=== PATIENT | male | born 1945 | race Caucasian/White ===

== ENCOUNTER → 2020-06-13 | Outpatient (CLI) | payer MEDICARE, BC | LOC: COL.LAB 10:48 | DX: Z96.641 Presence of right artificial hip joint (principal) ==

== ENCOUNTER 2020-06-18 05:10 | Day surgery (SDC) | payer MEDICARE, BC ==
[2020-06-18] VITALS (12 sets, daily range): BP systolic 87–125; BP diastolic 49–81; PULSE 73–85; TEMP 16
[~2020-06-18] VITALS: Ht 167.7 cm; Wt 93.9 kg
[~2020-06-18 05:10] MED LIST: ASPIRIN E.C. 8181 MG PO; EC-NAPROSYN375 MG PO; LOZOL 2.5M2.5 MG/TAB PO; ONE-A-DAY ESSE1 EACH PO; PRAVACHOL 20MG20 MG PO; PRINIVIL20 MG PO
--- NOTE | 2020-06-18 12:16 | NUR ---
PT TO ROOM 327 PER BED WITH REPORT FROM CESIA RAHMAN [email or web address]. PT IS A/O X3 LUNGS CTA, BOWEL SOUNDS ACTIVE, DRESSING TO RIGHT HIP CDI WITH OCCLUSIVE FOAM TAPE OVER INCISION AND DRESSINGS. POSITIVE PEDAL PULSES. SCDS AND TEDS BILATERALLY. IV TO PUMP, PT DENIES PAIN, N/V. AT BEDSIDE.
--- NOTE | 2020-06-18 14:26 | NUR ---
Plan: To return home with Camelia as care support. Assessment: SW met with patient in room about care support. Patient reports that he resides locally and will help him recovery. Patient indicated that he has a walker and cane at home that he will use for mobility. Patient denies having any other DME use. Patient reports that his PCP is Dr. Verdin with no upcoming appointments. Patient reports that he prefers [facility] for RX. Patient reports that his is his DPOA and declines adding any other EMR contacts. Patient indicated that will help transport. [facility]. Action: Educated patient on Home health services and community supports. Declined additional rehab. Client denies any care concerns at this time. Will follow or care support if they change.
--- NOTE | 2020-06-18 17:15 | NUR ---
PT HAS VOIDED 100 MLS THIS PM.
--- NOTE | 2020-06-18 21:31 | NUR ---
PT WAS ABLE TO STAND AT BEDSIDE AND MOVE UP TO HEAD OF BED WITH STEADY GAIT. DID HAVE SMALL AMOUNT OF EMESIS WHEN SITTING UP TO SIDE OF BED. RATES PAIN 8/10 AND WAS MEDICATED WITH OXYCODONE 10MG AND MORPHINE 2MG IV AT THIS TIME, WELL DOSE OF ZOFRAN. IVF CONTINUE TO LEFT HAND. IS ALERT AND ORIENTED X4. BULKY DRSG D/I.
--- NOTE | 2020-06-18 21:34 | NUR ---
BLADDER SCANNED FOR 375ML AT THIS TIME. HAS VOIDED 200CC AND HAS BEEN VOIDING IN 100CC INCREMENTS.
--- NOTE | 2020-06-19 01:31 | NUR ---
RATES PAIN 8/10. MEDICATED WITH OXYCODONE 10MG AND MORPHINE 2MG IV AT THIS TIME.
[2020-06-19 04:00] VITALS: BP 116/66; PULSE 87; TEMP 98.5
--- NOTE | 2020-06-19 06:19 | NUR ---
Medicated with Oxycodone 10mg po with AM meds. IVF capped, taking po fluids well.
[2020-06-19 07:05] LABS: HEMATOCRIT 39.3 % (42.0-52.0); HEMOGLOBIN 13.5 g/dl (13.5-18.0)
[2020-06-19 07:25] VITALS: BP 130/70; PULSE 88; TEMP 99.8
--- NOTE | 2020-06-19 08:10 | NUR ---
PATIENT RESTING IN BED AT BEDSIDE SHIFT REPORT. PATIENT ASSISTED TO REPOSITION UP IN BED. PATIENT REPORTS A PAIN LEVEL OF 1/10 AFTER PRN PAIN MEDICINE LAST SHIFT.
--- NOTE | 2020-06-19 11:55 | NUR ---
PATIENT'S DRESSING CHANGED TO MEDIUM AQUACELL THIS AM. INCISION SITE IS APPROXIMATED WELL, NO DRAINAGE, INCREASED SWELLING, REDNESS, WARMTH NOTED.
[2020-06-19 12:14] VITALS: BP 106/61; PULSE 78; TEMP 97.4
[2020-06-19 16:00] VITALS: BP 107/60; PULSE 75; TEMP 98.4
[2020-06-19 19:59] VITALS: BP 110/62; PULSE 78; TEMP 97.6
--- NOTE | 2020-06-19 20:12 | NUR ---
PATIENT REPORTED 1/10 PAIN THIS SHIFT. NO PRN PAIN MEDICATION ADMINISTERED, ICE THERAPY UTILIZED. PATIENT PLANNED ON DISCHARGING HOME AFTER THERAPY. HAD EPISODES OF NAUSEA AND VOMITTING AFTER THERAPY AND DECIDED TO STAY ONE MORE NIGHT. PATIENT SLEEPING SOUNDLY AT BEDSIDE SHIFT REPORT.
--- NOTE | 2020-06-19 20:30 | NUR ---
Pt. sitting up in bed at this time. Pt. is A&OX3, assessment complete. IV to lt. hand patent, IV fluids infusing per orders. Pt. reports pain to rt. hip at a 4 on pain scale. Gave pain meds per orders. Dressing to rt. hip cdi. Pt. denies further needs, call light within reach.
[2020-06-20] VITALS: BP 92/40; PULSE 82; TEMP 97.9
[2020-06-20 04:00] VITALS: BP 100/52; PULSE 81; TEMP 99.8
[2020-06-20] MEDS ORDERED: ASPI325T6 PO (07:08)
[2020-06-20] MEDS ORDERED: ULTRAM 50MG TAB50 MG PO (07:09)
[2020-06-20] MEDS ORDERED: ROXICODONE 55 MG/TAB PO (07:09)
[2020-06-20] MEDS ORDERED: CELEBREX 200MG200 MG PO (07:09)
[2020-06-20] MEDS ORDERED: SENOKOT S 50 MG1 TAB PO (07:10)
--- NOTE | 2020-06-20 08:00 | NUR ---
PATIENT IS A&O. VSS. RATES PAIN IN RLE AT 4-5 ON PAIN SCALE. GAVE PRN ROXICODONE, TWO TABS BEFORE AM THERAPY. RTH DRESSING IS CD&I WITH AQUACEL. TEDS TO BLE. SCD'S CURRENTLY OFF. POSITIVE PEDAL PULSES TO BLE. PATIENT EAT/DRINK/VOIDING SUFFICENT AMOUNTS. NO C/O N/V. LEFT HAND IV TO INT. HEAD TO TOE ASSESSMENT WNL. PATIENT PLANNING TO DISCHARGE HOME AFTER AM THERAPY. PATIENT SITTING UP IN BEDSIDE CHAIR WITH BREAKFAST TRAY. GAVE AM MED. NO OTHER NEEDS. CALL LIGHT IN REACH.
[2020-06-20 08:43] VITALS: BP 102/53; PULSE 87; TEMP 98.9
--- NOTE | 2020-06-20 09:40 | NUR ---
Initial visit; Patient thanked Building Construction Professor for looking in on him and offering God's blessings.
--- NOTE | 2020-06-20 10:55 | NUR ---
PATIENT DISCHARGING HOME VIA WC TO PERSONAL VEHICLE WITH . GAVE DISCHARGE INSTRUCTIONS, PRESCRIPTIONS SENT ELECTRONICALLY, AND DISCUSSED F\U APTS. ANSWERED ALL QUESTIONS/CONCERNS. DC'D LEFT HAND IV, COVERED SITE WITH GAUZE & COBAN. PATIENT DRESSED AND PERSONAL BELONGINGS PACKED. PATIENT ESCORTED OUT.
== END 2020-06-20 10:55 | disposition home or self-care (01) ==
LOC: SDCO 05:10 → JCC 05:10 → EDSTATUS 07:30 → JCC 06-20 10:55 → SDCO 06-20 10:55
PROVIDERS: Orthopaedic Surgery
DX: M16.11 Unilateral primary osteoarthritis, right hip (principal); Z20.828 Contact with and (suspected) exposure to other viral communicable diseases; I10 Essential (primary) hypertension; Z79.899 Other long term (current) drug therapy; Z79.82 Long term (current) use of aspirin; E78.00 Pure hypercholesterolemia, unspecified; Z87.891 Personal history of nicotine dependence
CPT/HCPCS: OP; A4314; A9284; C1713; C1776; J0690; J2270; J2370; J2405; J2704; J7030

== ENCOUNTER 2021-03-02 14:34 | Emergency (ER) | payer MEDICARE, OTHER ==
[~2021-03-02] VITALS: Ht 167.6 cm; Wt 94.5 kg
[~2021-03-02 14:34] MED LIST changes: +ASPI325T6 PO; +CELEBREX 200MG200 MG PO; +ROXICODONE 55 MG/TAB PO; +SENOKOT S 50 MG1 TAB PO; +ULTRAM 50MG TAB50 MG PO
[2021-03-02 15:06] LABS: BASO # 0.1 (0.0-0.2); BASO % 0.8 % (0.0-2.0); EOS # 0.6 (0.0-0.7); EOS % 6.2 % (0-4.0); GRAN # 5.6 (1.4-6.5); GRAN % 56.2 % (42.2-75.2); HEMATOCRIT 48.2 % (42.0-52.0); LYMPH # 2.5 (1.2-3.4); MEAN CELL VOLUME 93 fl (80.0-100.0); MEAN CORPUSCULAR HEMOGLOBIN 31 pg (27.0-31.0); MEAN CORPUSCULAR HGB CONC 33 g/dl (33.0-37.0); MONO # 1.1 (0.1-0.6); MONO % 11.4 % (1.7-9.3); PLATELET COUNT 242 K/mm3 (130-400); RED BLOOD COUNT 5.17 M/mm3 (4.20-5.60); REDCELL DISTRIBUTION WIDTH-CV 12.9 % (11.5-14.5)
[2021-03-02 15:17] LABS: ALBUMIN 4.2 gm/dL (3.5-5.0); BILIRUBIN,TOTAL 0.5 mg/dL (0.0-1.0); C-REACTIVE PROTEIN 0.8 mg/dL (0.0-0.9); CALCIUM 9.4 mg/dL (8.4-10.2); CREATININE, serum 1.36 (0.66-1.25); TOTAL PROTEIN 7.7 gm/dL (6.4-8.2)
[2021-03-02 15:53] LABS: PROTHROMBIN TIME 11.2 SECONDS (9.7-12.8)
[2021-03-02 17:20] VITALS: BP 137/85; PULSE 70; TEMP 97.6
== END 2021-03-02 17:45 | disposition short-term general hospital (02) ==
LOC: COL.ER 14:34
PROVIDERS: Family Medicine
DX: C71.9 Malignant neoplasm of brain, unspecified (principal); I10 Essential (primary) hypertension; E78.5 Hyperlipidemia, unspecified; Z79.899 Other long term (current) drug therapy
CPT/HCPCS: J1953

== ENCOUNTER → 2021-04-24 | Outpatient (CLI) | payer MEDICARE, OTHER | LOC: COL.RAD 04-19 14:15 | DX: N28.1 Cyst of kidney, acquired (principal); N17.9 Acute kidney failure, unspecified ==

== ENCOUNTER → 2021-12-20 | Outpatient (CLI) | payer MEDICARE, OTHER, BC | LOC: COL.RAD 06:42 | DX: C71.2 Malignant neoplasm of temporal lobe (principal) | CPT/HCPCS: A9575 ==

== ENCOUNTER 2022-03-13 16:53 | Observation (INO) | payer MEDICARE, OTHER, BC ==
[~2022-03-13] VITALS: Ht 167.6 cm; Wt 92.7 kg
[2022-03-13 17:56] LABS: BASO # 0.1 K/mm3 (0.0-0.2); BASO % 0.5 % (0.0-2.0); EOS # 0.3 K/mm3 (0.0-0.7); EOS % 3.7 % (0.0-4.0); GRAN # 5.7 K/mm3 (1.4-6.5); GRAN % 61.2 % (42.2-75.2); HEMATOCRIT 43.8 % (42.0-52.0); LYMPH # 1.7 K/mm3 (1.2-3.4); LYMPH % 18.6 % (20.0-51.0); MEAN CELL VOLUME 94 fl (80.0-100.0); MEAN CORPUSCULAR HEMOGLOBIN 32 pg (27-31); MEAN CORPUSCULAR HGB CONC 34 g/dl (33.0-37.0); MEAN PLATELET VOLUME 9.5 fl (7.4-10.4); MONO # 1.5 K/mm3 (0.1-0.6); MONO % 15.6 % (1.7-9.3); PLATELET COUNT 168 K/mm3 (130-400); RED BLOOD COUNT 4.68 M/mm3 (4.20-5.60)
[2022-03-13 18:21] LABS: ALBUMIN 3.3 gm/dL (3.4-4.8); BILIRUBIN,TOTAL 0.5 mg/dL (0.2-1.2); CALCIUM 9.4 mg/dL (8.4-10.2); CREATININE, serum 1.45 mg/dL (0.72-1.25); TOTAL PROTEIN 6.9 gm/dL (6.2-8.1)
[2022-03-13 19:40] LABS: COLLECTION METHOD CLEAN CATCH
[2022-03-13 19:54] LABS: MUCOUS Present (NOT PRESENT); PH 7 (5-8); SQUAMOUS EPITHELIAL None Seen /hpf (0-10); URINE APPEARANCE Clear (CLEAR/HAZY); URINE BACTERIA None Seen /hpf (NONE SEEN); URINE BLOOD Negative (NEGATIVE); URINE COLOR Yellow (YELLOW); URINE GLUCOSE Negative (NEGATIVE); URINE KETONE Negative (NEGATIVE); URINE NITRATE Negative (NEGATIVE); URINE PROTEIN(semi-quant) Negative (NEGATIVE); URINE RBC 0-2 /hpf (0-2); URINE UROBILINOGEN Negative (NEGATIVE)
[2022-03-13 20:16] LABS: INR 1.1 (0.8-3.0); PROTHROMBIN TIME 12.5 SECONDS (9.7-12.8)
[2022-03-13 20:18] LABS: PARTIAL THROMBOPLASTIN TIME 29.7 SECONDS (26.0-37.0)
[2022-03-13] MEDS ORDERED: NORVASC2.5 MG PO (21:17)
[2022-03-13] MEDS ORDERED: PRINIVIL40 MG PO (21:17)
[2022-03-13] MEDS ORDERED: PRAVACHOL 40MG40 MG PO (21:18)
[2022-03-13] MEDS ORDERED: ASPIRIN 81M81 MG/TA2 PO (21:18)
[2022-03-13] MEDS ORDERED: COLACE 100100 MG/CAP PO (21:19)
[2022-03-14] VITALS (7 sets, daily range): BP systolic 112–145; BP diastolic 54–80; PULSE 64–80; TEMP 97.4–99.4
--- NOTE | 2022-03-14 01:54 | NUR ---
Recieved a call from lab of a critical hep xa of 1.03. The heparin gtt currently running was not paused for 15 minutes prior to the draw. I notified the proivder of the results and paused the heparin gtt. The provider ordered for a redraw hep xa for 15 mins after pausing the heparin gtt. Order placed per provider and will re-assess the pt's heparin.
[2022-03-14 02:13] LABS: HEMATOCRIT 40.8 % (42.0-52.0); HEMOGLOBIN 13.8 g/dl (13.5-18.0); MEAN CELL VOLUME 95 fl (80.0-100.0); MEAN CORPUSCULAR HEMOGLOBIN 32 pg (27-31); MEAN CORPUSCULAR HGB CONC 34 g/dl (33.0-37.0); MEAN PLATELET VOLUME 9.7 fl (7.4-10.4); PLATELET COUNT 145 K/mm3 (130-400); RED BLOOD COUNT 4.29 M/mm3 (4.20-5.60); REDCELL DISTRIBUTION WIDTH-CV 13.1 % (11.5-14.5)
--- NOTE | 2022-03-14 02:36 | NUR ---
CRITICAL HEP XA VALUE CALLED. NOTIFIED PROVIDER, ROSARIO SHARPE OF RESULT. PROVIDER STATED TO FOLLOW HEPARIN GTT PROTOCOL. ACCORDING TO PROTOCOLT THE DRIP SHOULD BE STOPPED FOR 1 HOUR AND THEN DECREASED BY 250 UNITS/HR AFTER THE 1 HOUR MOHSEN. HEPARIN WAS STOPPED AT 0230, WILL RESTART AT NEW RATE AT 0330. WILL CONTINE TO MONITOR.
[2022-03-14 02:45] LABS: CALCIUM 8.6 mg/dL (8.4-10.2); CREATININE, serum 1.32 mg/dL (0.72-1.25)
[2022-03-14 02:50] LABS: BAND 2 % (0-10); EOSINOPHIL 5 % (0-4); LYMPHOCYTE 16 % (20.0-51.0); NEUTROPHILS 64 % (42.0-75.2)
[2022-03-14 02:51] LABS: PLATELET ESTIMATE NORMAL (NORMAL)
--- NOTE | 2022-03-14 04:20 | NUR ---
Pt brought up from ED around 0000. Admitted to room. Pt voided on arrival in BR. Pt alert and oriented, follows commands, calm. Steady gait. Reports pain in his left rib area. Pt appears to be dyspneic when OOB, but no SOB at rest. VS stable. Afebrile. On room air. NSR on tele. Shift assessment performed. Admission intake and admission assessments completed. Med rx reviewed with pt and pt's at bedside. Allergies confirmed. COVID and infectious disease assessments completed. No significant skin issues noted. Heparin gtt continuing at 14 ml/hr. Next hepxa check at 0930. No significant skin issues noted. Lung sounds are diminished. Pt on room air. Pt denies chest pain. Pt does not report any questions at this time, will continue to monitor.
--- NOTE | 2022-03-14 06:23 | NUR ---
No adverse events overnight. Heparin gtt and IV fluids continuing per orders and per protocol. Continuing to administer pain medication per orders. Pt alert and oriented, resting this morning. Pt states he has pain in the "left rib" area. No SOB noted on rest. Pt had slight wheezing and SOB when OOB, but none at rest. Pt denies feeling SOB. On room air. VS stable. Afebrile. Pt resting and does not report any questions at this time, will continue to monitor.
--- NOTE | 2022-03-14 11:06 | NUR ---
DR CORLEY CONSULSULTED FOR PUML PER DR THOMPSON, VOICEMAIL LEFT.
--- NOTE | 2022-03-14 11:07 | NUR ---
DR CORLEY RETURNED CALL, WILL SEE PATIENT IN THE MORNING.
--- NOTE | 2022-03-14 15:48 | NUR ---
behavioral health worker notified by HANNA Mccarthy that the patient did not meet inpatient qualifications and is being downgraded to OBS. Patient presented with SAENZ form along with education. Patient verbalized his understanding. Signed originial placed in the patient's chart and copy provided back to the patient. SW completed intake with patient. Patient's Ronit ([phone]) present at bedside. Patient and his live at home in [place]. Patient is independent with his ADL's and does not utilize any DME to assist with mobility. Patient has no home oxygen needs. PCP is and he utilizes [facility] for prescriptions. Patient reports that he does have a DPOA_HC established listing his as his agent. Patient will return home once medically ready. Discharge plan: Home
[2022-03-15] VITALS (7 sets, daily range): BP systolic 131–155; BP diastolic 68–86; PULSE 73–79; TEMP 98–99.1
--- NOTE | 2022-03-15 02:22 | NUR ---
Pt alert and oriented, follows commands, calm. Reports "some pain" when breathing in. Continuing with q2 pain medication per orders. Heparin gtt continuing. Heparin gtt has met goal x2, will be re-checked this morning at 0500. Pt continues to sat WNL on room air. Lung sounds are clear/diminished in upper lobes. Pt does have some notable expiratory wheezing at rest, worse when OOB. Pt has no SOB at rest but appears to be SOB when ambulating. Pt has steady gate. Up to void adequately. VS stable. IV fluids d/c'd per provider. Pt satting WNL on room air. Denies chest pain/nausea/vomiting. Pt denies having productive cough. Pt resting and does not report any questions at this time, will continue to monitor.
--- NOTE | 2022-03-15 06:11 | NUR ---
No adverse events overnight. Pt alert and oriented, follows commands. Heparin gtt continuing at 14 ml/hr. Hep xa will be assessed this morning. VS stable. Pt on room air. Pt not SOB at rest, some SOB on exertion with expiratory wheezing. Pt does not report any pain at this time. Did report some pain with breathing in overnight. IV fluids d/c'd per providers order. Pt does not report any questions at this time, will continue to monitor.
--- NOTE | 2022-03-15 07:30 | NUR ---
Patient laying in bed sleeping, easily awakened with verbal command. A&Ox3. VSS. IV CDI, fluids infusing. Denies pain and discomfort. Call light within reach
[2022-03-15 07:32] LABS: BASO % 0.4 % (0.0-2.0); EOS # 0.5 K/mm3 (0.0-0.7); EOS % 5.1 % (0.0-4.0); GRAN # 6.6 K/mm3 (1.4-6.5); HEMATOCRIT 39.2 % (42.0-52.0); HEMOGLOBIN 13.2 g/dl (13.5-18.0); LYMPH # 1.4 K/mm3 (1.2-3.4); LYMPH % 14.2 % (20.0-51.0); MEAN CELL VOLUME 95 fl (80.0-100.0); MEAN CORPUSCULAR HEMOGLOBIN 32 pg (27-31); MEAN CORPUSCULAR HGB CONC 34 g/dl (33.0-37.0); MEAN PLATELET VOLUME 9.9 fl (7.4-10.4); MONO # 1.4 K/mm3 (0.1-0.6); MONO % 13.9 % (1.7-9.3); PLATELET COUNT 156 K/mm3 (130-400); RED BLOOD COUNT 4.11 M/mm3 (4.20-5.60); REDCELL DISTRIBUTION WIDTH-CV 12.8 % (11.5-14.5)
[2022-03-15 07:45] LABS: CALCIUM 8.8 mg/dL (8.4-10.2); CREATININE, serum 1.22 mg/dL (0.72-1.25); POTASSIUM 4.2 mmol/L (3.5-4.5)
--- NOTE | 2022-03-15 18:21 | NUR ---
Patient had an uneventful day. A&Ox3. IV CDI, fluids infusing. Denies pain and discomfort. at the bedside most of the shift. Call light within reach
--- NOTE | 2022-03-16 04:44 | NUR ---
RESTED OVERNIGHT WI NO ISSUES, NEEDS MET.
[2022-03-16 05:00] VITALS: BP 134/78; PULSE 71; TEMP 98.1
[2022-03-16 07:12] LABS: BASO % 0.4 % (0.0-2.0); EOS # 0.5 K/mm3 (0.0-0.7); EOS % 4.8 % (0.0-4.0); GRAN # 6.2 K/mm3 (1.4-6.5); GRAN % 65.2 % (42.2-75.2); HEMATOCRIT 41.6 % (42.0-52.0); HEMOGLOBIN 13.9 g/dl (13.5-18.0); LYMPH # 1.5 K/mm3 (1.2-3.4); LYMPH % 15.8 % (20.0-51.0); MEAN CELL VOLUME 96 fl (80.0-100.0); MEAN CORPUSCULAR HEMOGLOBIN 32 pg (27-31); MEAN CORPUSCULAR HGB CONC 33 g/dl (33.0-37.0); MEAN PLATELET VOLUME 9.5 fl (7.4-10.4); MONO # 1.3 K/mm3 (0.1-0.6); MONO % 13.4 % (1.7-9.3); PLATELET COUNT 184 K/mm3 (130-400); RED BLOOD COUNT 4.34 M/mm3 (4.20-5.60); REDCELL DISTRIBUTION WIDTH-CV 12.8 % (11.5-14.5)
[2022-03-16 07:26] LABS: ALBUMIN 2.8 gm/dL (3.4-4.8); CALCIUM 9.4 mg/dL (8.4-10.2); CREATININE, serum 1.27 mg/dL (0.72-1.25); MAGNESIUM 1.9 mg/dL (1.6-2.6); POTASSIUM 4.2 mmol/L (3.5-4.5)
[2022-03-16 07:56] VITALS: BP 146/84; PULSE 71; TEMP 98.2
--- NOTE | 2022-03-16 08:00 | NUR ---
Patient sleeping, easily awakened with verbal command. A&Ox4. VSS. IV CDI, fluids infusing. Denies pain and discomfort. Independent with feeds and urinal. Call light within reach. Chemo precautions on place.
[2022-03-16 12:00] VITALS: BP 137/80; PULSE 73
[2022-03-16 16:00] VITALS: BP 135/71; PULSE 73
--- NOTE | 2022-03-16 17:46 | NUR ---
Patient had an uneventful day, at the bedside most of the shift. A&Ox3. VSS. IV CDI. Denies pain and discomfort. Independent in the room. Call light within reach
[2022-03-16 20:00] VITALS: BP 148/73; PULSE 78; TEMP 98.2
[2022-03-17] VITALS (11 sets, daily range): BP systolic 124–189; BP diastolic 73–103; PULSE 66–96; TEMP 97.5–98.5
[2022-03-17 06:58] LABS: BASO % 0.5 % (0.0-2.0); EOS # 0.6 K/mm3 (0.0-0.7); EOS % 6.8 % (0.0-4.0); GRAN # 5.1 K/mm3 (1.4-6.5); GRAN % 62.9 % (42.2-75.2); HEMATOCRIT 43.6 % (42.0-52.0); HEMOGLOBIN 14.5 g/dl (13.5-18.0); LYMPH # 1.4 K/mm3 (1.2-3.4); LYMPH % 16.8 % (20.0-51.0); MEAN CELL VOLUME 96 fl (80.0-100.0); MEAN CORPUSCULAR HEMOGLOBIN 32 pg (27-31); MEAN CORPUSCULAR HGB CONC 33 g/dl (33.0-37.0); MEAN PLATELET VOLUME 9.7 fl (7.4-10.4); MONO % 12.6 % (1.7-9.3); PLATELET COUNT 223 K/mm3 (130-400); RED BLOOD COUNT 4.54 M/mm3 (4.20-5.60); REDCELL DISTRIBUTION WIDTH-CV 12.8 % (11.5-14.5)
[2022-03-17 07:31] LABS: ALBUMIN 2.9 gm/dL (3.4-4.8); CALCIUM 9.6 mg/dL (8.4-10.2); CREATININE, serum 1.28 mg/dL (0.72-1.25); MAGNESIUM 1.9 mg/dL (1.6-2.6); PHOSPHOROUS 3.1 mg/dL (2.3-4.7)
--- NOTE | 2022-03-17 08:00 | NUR ---
Pt remains in bed A&O X4. No complaints of pain or disconfort. Remains NPO. Peripheral line on Left forearm, CDI, no redness or edema. INT on right hand CDI, no redness or edema. Call light within reach.
[2022-03-17] MEDS ORDERED: ELIQUIS 5MG PO (13:11)
--- NOTE | 2022-03-17 14:45 | NUR ---
Discharge paperwork reviewed with the patient. Patient verbalized an understanding to follow doctor orders. IV removed, tip intact. No further needs expressed. Patient ambulated independently with nursing staff to awaiting vehicle.
== END 2022-03-17 14:45 | disposition home or self-care (01) ==
LOC: COL.ER 16:53 → MEDICAL 21:29
PROVIDERS: Nurse Practitioner; Nurse Practitioner Family; ADMIT Internal Medicine
DX: I26.99 Other pulmonary embolism without acute cor pulmonale (principal); I13.0 Hypertensive heart and chronic kidney disease with heart failure and stage 1 through stage 4 chronic kidney disease, or unspecified chronic kidney disease; I50.20 Unspecified systolic (congestive) heart failure; E78.5 Hyperlipidemia, unspecified; N18.9 Chronic kidney disease, unspecified; R73.9 Hyperglycemia, unspecified; Q61.3 Polycystic kidney, unspecified; I08.1 Rheumatic disorders of both mitral and tricuspid valves
CPT/HCPCS: 99233-AI; A9500; G0378; J1170; J1644; J2270; J2785; J7030; Q9967